=== PATIENT | male | born 1970 | race Caucasian/White ===

== ENCOUNTER 2023-12-08 09:37 | Outpatient (CLI) | payer OTHER, SELFPAY ==
--- NOTE | 2023-12-08 09:42 | XR_ITS ---
WS: [id number] Examination: XR chest 2V* [id number] Reason for Exam: SHORT OF BREATH Date: December 08, 2023 Comparison: June 04, 2009 Findings: The heart is not enlarged. The mediastinum is not widened. There is no pulmonary edema or pleural effusion. No dense consolidation is identified. The lungs appear hyperinflated XR/XR chest 2V* [id number] Impression: The lungs are hyperinflated. There is no failure or focal infiltrate.
[2023-12-08 10:17] VITALS: PULSE 100; RESP 18; O2SAT 98
[2023-12-08] MEDS: albuterol 2.5 mg/3 mL Neb INHALATION (10:17)
[2023-12-08 10:22] VITALS: PULSE 99
== END 2023-12-08 09:38 | disposition home or self-care (01) ==
PROVIDERS: PCP Family Medicine; Visit Provider Family Medicine
DX: J98.4 Other disorders of lung (principal); R06.02 Shortness of breath
CPT/HCPCS: 71046; 94060; 94618

== ENCOUNTER → 2024-01-05 13:01 | Outpatient (BNVA) | payer MEDICAID, SELFPAY | PROVIDERS: PCP Family Medicine; Visit Provider Nurse Practitioner | DX: M25.511 Pain in right shoulder (principal); M19.011 Primary osteoarthritis, right shoulder | CPT/HCPCS: 73030 ==

== ENCOUNTER → 2024-02-01 09:47 | Outpatient (BNVA) | payer MEDICAID, SELFPAY | PROVIDERS: PCP Family Medicine; Visit Provider Nurse Practitioner | DX: M25.531 Pain in right wrist (principal); M85.68 Other cyst of bone, other site | CPT/HCPCS: 73110 ==

== ENCOUNTER 2024-05-24 00:57 | Emergency (ER) | payer MEDICAID, SELFPAY ==
[2024-05-24] VITALS (29 sets, daily range): BP systolic 104–138; BP diastolic 57–89; PULSE 92–112; RESP 13–39; TEMP 37.6; O2SAT 88–92
--- NOTE | 2024-05-24 01:03 | XRR_ITS ---
PROCEDURE INFORMATION: Exam: XR Chest Exam date and time: 05/24/2024 2:05 AM Age: 54 years old Clinical indication: Shortness of breath; Additional info: Dyspnea TECHNIQUE: Imaging protocol: Radiologic exam of the chest. Views: 1 view. COMPARISON: CR XR chest 2V* [id number] 12/08/2023 9:53 AM FINDINGS: Lungs: Minimal bibasilar atelectasis. No consolidation. Pleural spaces: Unremarkable. No pleural effusion. No pneumothorax. Heart/Mediastinum: Unremarkable. No cardiomegaly. Bones/joints: Unremarkable. XR/XR chest 1V portable [id number] IMPRESSION: Minimal bibasilar atelectasis. No focal consolidation.
--- NOTE | 2024-05-24 01:07 | W.ED.SOB ---
HPI - SOB/Dyspnea General: Chief Complaint: Shortness of Breath/Dyspnea Stated Complaint: SOB Time Seen by Provider: 05/24/24 01:02 History of Present Illness: HPI Narrative: Patient arrived via EMS with complaints of shortness of breath times last 3 days or so. Patient says normally does not wear oxygen. Immediately EMS arrived there he look like he was struggling to get him 1 DuoNeb, 125 mg Solu-Medrol, placed on 2 L of oxygen. Upon arrival here we switched over to room air and his O2 saturation stayed about 92%. Patient said he is feeling much better after the breathing treatment. Patient does have a history of COPD and is on multiple nebulizer treatments per day. But does not have home oxygen. Related Data Home Medications Medication Instructions Recorded Confirmed allopurinol 300 mg tablet 300 mg PO DAILY 03/02/24 03/31/24 escitalopram oxalate 10 mg tablet 10 mg PO DAILY 03/02/24 03/31/24 lisinopril 10 mg tablet 10 mg PO DAILY 03/02/24 03/31/24 metoprolol succinate 100 mg 100 mg PO DAILY 03/02/24 03/31/24 tablet,extended release 24 hr Previous Rx's Medication Instructions Recorded celecoxib 100 mg capsule (Celebrex) 100 mg PO BID #180 caps 02/01/24 [facility] #1 ea 03/02/24 diclofenac sodium 1 % topical gel 2 g topical QID #100 grams 03/31/24 Allergies Allergy/AdvReac Type Severity Reaction Status Date / Time No Known Allergies Allergy Verified 05/24/24 01:02 Review of Systems General: Reports: 10 or more systems reviewed and unremarkable except in HPI and below COUNT INCLUDES THE [facility] ED PFSH: Medical History Right hand pain Positive Tinel's sign Rotator cuff arthropathy of right shoulder Primary osteoarthritis, right shoulder Social History Smoking and tobacco/nicotine status: current every day tobacco/nicotine user Physical Exam Const: COMMON NORMALS: no acute distress, average body habitus, patient oriented x3, no limitations, healthy appearing, alert and well nourished HENMT: COMMON NORMALS: normocephalic, atraumatic, hearing grossly normal bilaterally, external ears normal, Normal external nose present and moist oral mucous membranes HEAD & SCALP: normocephalic and atraumatic NOSE: Normal external nose present EXTERNAL EAR: Yes external ears normal Neck/C-Spine: COMMON NORMALS: no JVD Chest: COMMONS NORMALS: normal inspection of the chest and normal palpation of entire chest wall Resp: COMMON NORMALS: normal respiratory effort, No retractions, No use of accessory muscles and clear to auscultation bilaterally AUSCULTATION: clear to auscultation bilaterally Cardio: COMMON NORMALS: no JVD, regular rate, regular rhythm, S1 normal heart sound present, S2 normal heart sound present, No gallops present (Cardio), No clicks present (Cardio), No murmurs present (Cardio) and No rub (Cardio) RATE: regular rate RHYTHM: regular rhythm HEART SOUNDS: S1 normal heart sound present and S2 normal heart sound present GI: COMMON NORMALS: Normal to inspection, nondistended, normoactive bowel sounds present, Soft to palpation, non-tender, No hepatosplenomegaly present and no masses PALPATION: Yes Soft to palpation and Yes No hepatosplenomegaly present Neuro: COMMON NORMALS: patient oriented x3 SENSORIUM/ORIENTATION: Yes alert Course Vital Signs: Vital signs: Vital Signs Temperature 99.6 F 05/24/24 00:58 Pulse Rate 92 05/24/24 03:00 Respiratory Rate 39 H 05/24/24 03:00 Blood Pressure 115/82 05/24/24 03:00 Pulse Oximetry 91 05/24/24 02:55 Oxygen Delivery Me thod Nasal Cannula 05/24/24 01:57 Oxygen Flow Rate 1 05/24/24 01:57 MDM - SOB/Dyspnea Medical Decision Making Patient was titrated down off his oxygen and his O2 sat stayed about 94%. Lab work was reviewed patient is positive for RSV. Patient will be discharged home. Medical Records I reviewed the patient's medical records. Lab Data I reviewed the patient's lab results. 05/24/24 02:25 05/24/24 00:55 Labs/Radiology: Laboratory Results WBC 9.12 10^3/uL (3.29-11.43) 05/24/24 02:25 Corrected WBC Cancelled 05/24/24 00:55 RBC 4.41 10^6/uL (3.85-5.65) 05/24/24 02:25 Hgb 12.30 g/dL (11.27-16.99) 05/24/24 02:25 Hct 37.0 % (37-53) 05/24/24 02:25 MCV 83.9 fl (82-101) 05/24/24 02:25 MCH 27.9 pg (27-33) 05/24/24 02:25 MCHC 33.2 g/dL (30-55) 05/24/24 02:25 RDW 13.9 % (12.1-15.1) 05/24/24 02:25 Plt Count 235 10^3/cmm (157-399) 05/24/24 02:25 MPV 9.2 fL (7.4-10.4) 05/24/24 02:25 Gran % Cancelled 05/24/24 00:55 Neut % (Auto) 86.7 % 05/24/24 02:25 Lymph % (Auto) 4.8 % 05/24/24 02:25 [place] % (Auto) 6.7 % 05/24/24 02:25 Eos % (Auto) 1.0 % 05/24/24 02:25 Baso % (Auto) 0.5 % 05/24/24 02:25 Neut # (Auto) 7.90 10^3/uL (1.8-7.7) H 05/24/24 02:25 Lymph # (Auto) 0.4 10^3/uL (0.8-4.8) L 05/24/24 02:25 [place] # (Auto) 0.6 10^3/uL (0.2-0.9) 05/24/24 02:25 Eos # (Auto) 0.1 10^3/uL (0.0-0.8) 05/24/24 02:25 Baso # (Auto) 0.1 10^3/uL (0.0-0.1) 05/24/24 02:25 Absolute Gran (auto) Cancelled 05/24/24 00:55 Nucleated RBC % (auto) 0 % 05/24/24 02:25 Nucleated RBCs # 0.0 /100WBC 05/24/24 02:25 Sodium 138 mmol/L (136-145) 05/24/24 00:55 Potassium 4.4 mmol/L (3.5-5.1) 05/24/24 00:55 Chloride 96 mmol/L (98-107) L 05/24/24 00:55 Carbon Dioxide 29 mmol/L (22-29) 05/24/24 00:55 Anion Gap 17.4 (5-19) 05/24/24 00:55 BUN 18 mg/dL (6-20) 05/24/24 00:55 Creatinine 1.0 mg/dL (0.7-1.2) 05/24/24 00:55 GFR Calculation 77.3 mL/min (90-130) L 05/24/24 00:55 Glucose 115 mg/dL (65-115) 05/24/24 00:55 Calculated Osmolality 289 mOsm/kg (285-295) 05/24/24 00:55 Lactic Acid 2.6 mmol/L (0.5-2.2) H 05/24/24 00:55 Calcium 9.2 mg/dL (8.5-10.5) 05/24/24 00:55 Total Bilirubin 0.5 mg/dL (0.15-1.2) 05/24/24 00:55 AST 18 U/L (0-40) 05/24/24 00:55 ALT 27 U/L (0-41) 05/24/24 00:55 Alkaline Phosphatase 96 U/L (40-130) 05/24/24 00:55 NT-Pro-B Natriuret Pep 65 pg/mL (0-125) 05/24/24 00:55 Total Protein 7.1 g/dL (6.6-8.7) 05/24/24 00:55 Albumin 3.7 g/dL (3.5-5.2) 05/24/24 00:55 Globulin 3.4 g/dL (1.3-4.6) 05/24/24 00:55 Coronavirus (PCR) Negative (Negative) 05/24/24 01:10 Influenza A (PCR) Negative (Negative) 05/24/24 01:10 Influenza Type B (PCR) Negative (Negative) 05/24/24 01:10 RSV (PCR) Positive (Negative) A 05/24/24 01:10 All radiology interpretation(s) finalized by discharge Discharge Plan Discharge Patient Disposition: Home Clinical Impression: RSV/bronchiolitis Condition: Stable Prescriptions: No Action celecoxib [Celebrex] 100 mg capsule 100 mg PO BID Qty: 180 0RF metoprolol succinate 100 mg tablet extended release 24 hr 100 mg PO DAILY lisinopril 10 mg tablet 10 mg PO DAILY allopurinol 300 mg tablet 300 mg PO DAILY escitalopram oxalate 10 mg tablet 10 mg PO DAILY (DME) [facility] See Rx Instructions .Route .MEDSUPPLY Qty: 1 0RF Rx Instructions: As directed diclofenac sodium 1 % gel 2 g topical QID Qty: 100 3RF Rx Instructions: apply to single elbow, wrist or hand; for hand includes palm/fingers/back of hand Discharge Orders: Discharge ED (Routine); Ordered 05/24/24 Ordered By: Anthony Garcia Referrals: Mario Coburn MD [Primary Care Provider] - 1 week Segundo Pritchard SUR TECH [Earthmoving Plant Operator] - Patient Instructions: RSV (Respiratory Syncytial Virus) Infection (ED) Activity Restrictions/Additional Instructions: Thank you for choosing [facility] for your healthcare needs today. Please realize that you were seen in the emergency department and that we are providing you with an emergency medical screening exam and this may not be a complete and all exclusive of all testing and/or medical workup we may need to determine your element or severity of your illness. It is very important that you follow-up as instructed with your primary care provider or specialist for the additional evaluation and to discuss your medical treatment plan. You may return to the emergency department should you have concerns or if your condition changes or worsens in any way. Coding Level of Care Code ED Appraiser for Nely Desir
[2024-05-24 01:36] LABS: Lactic Sepsis W/Reflex 2.6 mmol/L (0.5-2.2)
[2024-05-24 01:45] LABS: Alanine Aminotransferase 27 U/L (0-41); Albumin Level 3.7 g/dL (3.5-5.2); Alkaline Phosphatase 96 U/L (40-130); Anion Gap 17.4 (5-19); Aspartate Amino Transferase 18 U/L (0-40); Blood Urea Nitrogen 18 mg/dL (6-20); Calcium 9.2 mg/dL (8.5-10.5); Carbon Dioxide 29 mmol/L (22-29); Chloride 96 mmol/L (98-107); Creatinine Clr Calc Pharmacy 113.4999; Globulin 3.4 g/dL (1.3-4.6); Glomerular Filtration Rate 77.3 mL/min (90-130); Glucose 115 mg/dL (65-115); NT Pro B Type Natriuretic Pept 65 pg/mL (0-125); Osmolality Calculated 289 mOsm/kg (285-295); Potassium 4.4 mmol/L (3.5-5.1); Sodium 138 mmol/L (136-145); Total Bilirubin 0.5 mg/dL (0.15-1.2); Total Protein 7.1 g/dL (6.6-8.7)
[2024-05-24] MEDS: albuterol 2.5 mg/3 mL Neb INHALATION (02:00)
[2024-05-24 02:01] LABS: Covid PCR NEGATIVE (Negative); Influenza A NEGATIVE (Negative); Influenza B NEGATIVE (Negative)
[2024-05-24 02:28] LABS: Basophils # 0.1 10^3/uL (0.0-0.1); Basophils % 0.5 %; Eosinophils # 0.1 10^3/uL (0.0-0.8); Lymphocytes # 0.4 10^3/uL (0.8-4.8); Lymphocytes % 4.8 %; Mean Corpuscular HGB Conc 33.2 g/dL (30-55); Mean Corpuscular Hemoglobin 27.9 pg (27-33); Mean Corpuscular Volume 83.9 fl (82-101); Mean Platelet Volume 9.2 fL (7.4-10.4); Monocytes # 0.6 10^3/uL (0.2-0.9); Monocytes % 6.7 %; Neutrophils % 86.7 %; Nucleated Red Blood Cells % 0 %; Platelet Count 235 10^3/cmm (157-399); Red Blood Count 4.41 10^6/uL (3.85-5.65); Red Cell Distribution Width 13.9 % (12.1-15.1); White Blood Count 9.12 10^3/uL (3.29-11.43)
[2024-05-24 02:37] LABS: Respiratory Syncytial Virus Ce POSITIVE (Negative)
[2024-05-24 03:03] LABS: Reflex Lactate Order REFLEX LACTIC ORDERD
== END 2024-05-24 03:25 | disposition home or self-care (01) ==
PROVIDERS: Emergency Provider Emergency Medicine; PCP Family Medicine
DX: J21.0 Acute bronchiolitis due to respiratory syncytial virus (principal); Z11.52 Encounter for screening for COVID-19; Z72.0 Tobacco use
CPT/HCPCS: 36415; 71045; 80053; 83605; 83880; 85025; 87637; 94640; 99284; J7613

== ENCOUNTER 2024-07-18 11:16 | Emergency (ER) | payer MEDICAID, SELFPAY ==
[2024-07-18 11:21] VITALS: BP 152/94; PULSE 90; TEMP 36.6; O2SAT 96; BMI 47.9
--- NOTE | 2024-07-18 11:27 | USCV_ITS ---
Sher Guzman Age: 54 Gender: M : 1970 Exam Date: 07/18/2024 11:37 Ordering Phys: Brain Ascencio MD Technologist: R Exam Location: [facility] [place] Indication: RT leg pain HISTORY: RT lower extremity pain PROCEDURES: Venous duplex imaging was performed in only the right lower extremity. The following venous structures were evaluated: common femoral vein, profunda vein, proximal portion of the greater saphenous vein, superficial femoral vein, and the popliteal vein. In addition, the posterior tibial and peroneal trunk were evaluated. FINDINGS: No evidence of DVT seen in any vessel visualized at this time. CONCLUSIONS No evidence of right lower extremity DVT. Driss Baker MD (Electronically Signed) Final Date: 18 July 2024 12:26 S
--- NOTE | 2024-07-18 14:11 | ED_ITS ---
HPI - Extremity Problem General: Chief complaint: Extremity Problem,Nontraumatic Stated complaint: LEG/FOOT PAIN Time Seen by Provider: 07/18/24 13:22 Source: patient Mode of arrival: ambulatory Limitations: no limitations History of Present Illness: Patient is a nice 54-year-old male presents to ED today with complaint of swelling to his right ankle and foot over the past few days. Patient states he awoke with symptoms. Patient states he does have a history of gout that has presented similarly in the past. He does take daily allopurinol. He has not had any injury or trauma to the extremity. He has not noticed any redness or skin wounds. Patient is not running fevers. He is not having any calf pain. MD Complaint: extremity pain, extremity swelling, joint swelling and joint pain Onset (ago): day(s) Pain Consistency: constant Location: right and lower extremity Radiation: none Relieving factors: nothing Associated symptoms: Reports no associated symptoms; Deny chest pain or fever(s) Context: history of gout Related Data Home Medications ?Medication ?Instructions ?Recorded ?Confirmed allopurinol 300 mg tablet 300 mg PO DAILY 03/02/2409/17 escitalopram oxalate 10 mg tablet 10 mg PO DAILY 03/0203/31/24 lisinopril 10 mg tablet 10 mg PO DAILY 03/02/2409/17 metoprolol succinate 100 mg 100 mg PO DAILY 03/02/24 1 06/01/23 tablet,extended release 24 hr Previous Rx's ?Medication ?Instructions ?Recorded celecoxib 100 mg capsule (Celebrex) 100 mg PO BID #180 caps 02/01/24 [facility] #1 ea 03/02/24 diclofenac sodium 1 % topical gel 2 g topical QID #100 grams 03/31/24 prednisone 10 mg tablet 10 mg PO DAILY 7 days #27 ta bs 07/18/24 Allergies Allergy/AdvReac Type Severity Reaction Status Date / Time No Known Allergies Allergy Verified 07/18/24 11:26 Review of Systems Const: Denies: fever(s), chills, body aches, fatigue or malaise Card: Denies: chest pain Resp: Denies: dyspnea GI: Denies: abdominal pain Musc: Reports: extremity pain, extremity swelling, joint pain, joint swelling and joint warmth; Denies: neck pain, back pain, joint redness, muscle cramps or muscle weakness Neuro: Denies: headache(s), numbness in extremities, weakness in extremities or sensory changes [facility] ED PFSH: Medical History Right hand pain Positive Tinel's sign Rotator cuff arthropathy of right shoulder Primary osteoarthritis, right shoulder Social History Smoking and tobacco/nicotine status: current every day tobacco/nicotine user Physical Exam Const: COMMON NORMALS: no acute distress, patient oriented x3, no limitations and alert GENERAL APPEARANCE: cooperative NUTRITIONAL APPEARANCE: obese morbidly obese (BMI 47.9) Resp: COMMON NORMALS: normal respiratory effort and clear to auscultation bilaterally AUSCULTATION: clear to auscultation bilaterally Cardio: COMMON NORMALS: regular rate and regular rhythm RATE: regular rate RHYTHM: regular rhythm Back/Pelvis: COMMON NORMALS: thoracic and lumbar spine normal to inspection and no thoracic nor lumbar tenderness Extremity: COMMON NORMALS: capillary refill normal and no calf tenderness GENERAL: Yes normal exam except as noted RIGHT LOWER EXTREMITY: Yes foot & digits and Yes foot & digits OTHER: pts R foot/ankle with edema and is warm to the touch; no erythema; no wounds/plantar wounds or skin breaks; no cellulitic appearance or streaking; pulses/sensation/cap refill all normal Neuro: COMMON NORMALS: patient oriented x3, moves all extremities, no focal motor deficits and no sensory deficits noted SENSORIUM/ORIENTATION: Yes alert Course Vital Signs: Vital signs: Vital Signs Temperature 97.9 F 07/18/24 11:21 Pulse Rate 86 07/18/24 14:54 Blood Pressure 134/92 07/18/24 14:54 Pulse Oximetry 95 07/18/24 14:54 Oxygen Delivery Me thod Room Air 07/18/24 14:21 MDM - Extremity (Nontraumatic) Medical Decision Making Patient had an ultrasound performed in triage which was negative for DVT. He has not had any acute injury or trauma therefore x-rays of the lower extremity were not obtained. Patient has no wounds or plantar punctures to suggest i nfection. He maintains fairly well range of motion of the ankle joint and I do not have any concern for septic arthritis. At this point, acute gout flare is the likely diagnosis. He states indomethacin has not worked well in the past. Symptoms have been present for days and he probably would not get much response with colchicine. Will place him on a prednisone taper and he can begin taking [id number] anti-inflammatories. Recommend he follow-up with his primary care provider later this week. Return to ED precautions discussed. Medical Records I reviewed the patient's medical records. No radiology studies performed this visit Discharge Plan Discharge Patient Disposition: Home Clinical Impression: Gout flare Qualifiers: Gout site: ankle Gout etiology: unspecified cause Laterality: right Qualified Code(s): M10.9 - Gout, unspecified Condition: Stable Prescriptions: New prednisone 10 mg tablet 10 mg PO DAILY 7 Days Qty: 27 0RF Rx Instructions: 6 tabs on days 1-2, 5 tabs on days 3, 4 tabs on day 4, 3 tabs on day 5, 2 tabs on day 6, 1 tab on day 7 No Action celecoxib [Celebrex] 100 mg capsule 100 mg PO BID Qty: 180 0RF metoprolol succinate 100 mg tablet extended release 24 hr 100 mg PO DAILY lisinopril 10 mg tablet 10 mg PO DAILY allopurinol 300 mg tablet 300 mg PO DAILY escitalopram oxalate 10 mg tablet 10 mg PO DAILY (DME) [facility] See Rx Instructions .Route .MEDSUPPLY Qty: 1 0RF Rx Instructions: As directed diclofenac sodium 1 % gel 2 g topical QID Qty: 100 3RF Rx Instructions: apply to single elbow, wrist or hand; for hand includes palm/fingers/back of hand Discharge Orders: Discharge ED (Routine); Ordered 07/18/24 Ordered By: Macrina Nagy Referrals: Mario Coburn MD [Primary Care Provider] - Patient Instructions: Gout (ED) Activity Restrictions/Additional Instructions: As we discussed we will place you on a steroid taper over the next week. I would like you to follow-up with your primary care provider later this week for re-evaluation. Your medication list that we had in our system indicated you are taking Celebrex (celecoxib). This is an anti-inflammatory medication. If you are prescribed this, you can continue taking it. If you are not taking it, then I would recommend starting an [id number]-nie-[id number] anti-inflammatory such as ibuprofen to help with your gout flare. You may return to the emergency department for worsening pain, swelling, redness, warmth, fevers, generally feeling worse or unwell, or any other concerns you may have. Print Language: Frisian Coding Level of Care Code ED Bread Stacker for Nely Desir
[2024-07-18] MEDS: dexamethasone 10 mg/mL INJ IM (14:16)
[2024-07-18 14:21] VITALS: BP 120/79; PULSE 84; O2SAT 95
[2024-07-18 14:54] VITALS: BP 134/92; PULSE 86; O2SAT 95
== END 2024-07-18 14:55 | disposition home or self-care (01) ==
PROVIDERS: Emergency Provider Physician Assistant; PCP Family Medicine
DX: M10.9 Gout, unspecified (principal); Z72.0 Tobacco use
CPT/HCPCS: 93971; 96372; 99284; J1100